=== PATIENT | male | born 1975 | race Caucasian/White ===

== ENCOUNTER 2024-12-30 20:19 | Emergency (ER) | payer BC, SELFPAY ==
[2024-12-30 20:28] VITALS: BP 164/94; PULSE 84; RESP 16; TEMP 36.8; O2SAT 95; BMI 28.2
--- NOTE | 2024-12-30 20:29 | ED.WOUNDLAC ---
HPI - Wound/Laceration General Chief Complaint: Wound/Laceration Stated Complaint: rt thumb wound/cut while cutting potatos Time Seen by Provider: 12/30/24 22:06 Source: patient Mode of arrival: ambulatory Limitations: no limitations History of Present Illness ED Provider: MARLON LAMB narrative: 49 yo male R hand dominant not on thinners unclear Tdap status here with c/o using mandolin slicer for cutting potatoes and it sliced off a part of the finger pad superficial but it would not stop bleeding. Vaccines UTD. He denies any other injury. 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) Extremity Location: right: hand (thumb) Place: home Patient tetanus UTD: Yes Context: accidental Associated symptoms: none Treatments prior to arrival: bandage Related Data Allergies Allergy/AdvReac Type Severity Reaction Status Date / Time amlodipine AdvReac Swelling Verified 12/30/24 20:29 Review of Systems Review of Systems: Constitutional : No Fever, No Chills, Cardiovascular : No Chest Pain, No SOB Respiratory : No Dyspnea Gastrointestinal : No abdominal pain Musculoskeletal : No Joint Swelling Skin : No rash, positive skin laceration Neuro : No Weakness, No Numbness All other systems reviewed and are negative PMFSH Past Medical History Attestation statement: The following information was validated with the patient. Social History Social History (Updated 12/30/24 @ 22:46 by Mary Jane Perez DO) Patient Tobacco Use Status: Never used Tobacco Smoked in Last 30 Days: No Use of substances other than those prescribed or required for medical reasons: No Advance Directives: No Advance Directives Information Provided: No Physical Exam Vital Signs: Vital Signs: Last Vital Signs Temp 97.9 F 12/30/24 23:02 Pulse 78 12/30/24 23:02 Resp 16 12/30/24 23:02 BP 164/94 H 12/30/24 23:02 Pulse Ox 98 12/30/24 23:02 O2 Del Method Room Air 12/30/24 23:02 BMI result Body Mass Index 28.2 Appearance: Alert. Oriented X3. No acute distress. Eyes: Pupils equal, round and reactive to light. ENT: Pharynx normal. Neck: Normal inspection. CVS: Pulses normal. Respiratory: No respiratory distress. Abdomen: atraumatic Skin: Skin warm and dry. Normal skin color. Extremities: No lower extremity edema. R thumb the distal part of his finger pad superficial 0.5cm avulsion - bleeding controlled Neuro: Oriented X 3. No motor deficit. No sensory deficit. CN2-12 intact Course Course Course Narrative: This is an RME performed by Aleksandra Aldridge CNP: Additional HPI, ROS, PE not included below will be deferred to primary provider. Patient is a 49-year-old male who presents emergency department for evaluation of accidental avulsion to the right thumb from a Mandolin while cutting potatoes prior to arrival. Denies use of anticoagulants, known coagulation disorders. Last tetanus vaccination >10 years. Normal saline. Xeroform gauze placed over avulsion, clean dry pressure dressing applied Medical Decision Making Medical Decision Making MDM Narrative: 49 yo male with R hand dom here s/p skin avulsion from mandolin slicer at this time NV intact very superficial will place in vaseline clean dressing and instruct local wound care and reasons to return. He is well appearing. Differential Diagnosis Differential Diagnoses: The differential diagnosis associated with the presentation includes laceration, skin avulsion Prescription Management I considered prescription management with: Antibiotic and Other Discharge Plan Discharge Clinical Impression: Avulsion of skin Patient Disposition: Home, Self-Care Instructions: Skin Avulsion (ED) Additional Instructions: monitor for redness, swelling, yellow drainage, fevers keep dressing on for 48 hours okay after that to wear bandaid and gauze do not get wet other than shower after 48 hours (until healed should not be washing dishes) keep clean dry and intact Interventions: ED Discharge Assessment Last Done: 12/30/24 23:02 Discharge Date/Time: 12/30/24 23:03 Print Language: [place]
[2024-12-30 23:02] VITALS: BP 164/94; PULSE 78; RESP 16; TEMP 36.6; O2SAT 98
== END 2024-12-30 23:03 | disposition home or self-care (01) ==
PROVIDERS: Emergency Provider Emergency Medicine; PCP Family Medicine
DX: S61.001A Unspecified open wound of right thumb without damage to nail, initial encounter (principal); W26.0XXA Contact with knife, initial encounter; Y93.9 Activity, unspecified; Y92.9 Unspecified place or not applicable; Y99.9 Unspecified external cause status
CPT/HCPCS: 99283